=== PATIENT | male | born 1965 | race Caucasian/White ===

== ENCOUNTER 2024-09-20 02:56 | Emergency (ER) | payer BC, SELFPAY ==
[2024-09-20 03:01] VITALS: BP 156/110; PULSE 114; RESP 19; TEMP 36.6; O2SAT 98
--- NOTE | 2024-09-20 03:55 | ED.GENADUL_ITS ---
Discharge Plan Discharge Details Chief Complaint: Fall/Non TraumaCriteria Primary Care Provider: Unknown,Unknown ED Provider: Darlene Marcus Home Meds and New Rx's Prescriptions: No Action No Known Home Meds HPI General Mode of arrival: ambulatory . Date/Time Provider Initiated Documentation: 09/20/24 03:07 . Limitations to Documentation: no limitations . Information obtained by: patient . HPI Narrative: 59yo M with hx TBI, unsteady gait at baseline, presenting after fall. Was drinking with friends this evening, lost balance at top of stairs and fell down ~10-12 stairs. Not sure if he hit his head. Did not lose consciousness. Reports left elbow pain and left lower back pain, otherwise denies pain. No headache, neck pain, nausea, vomiting, numbness, tingling, or weakness. No chest pain or shortness of breath. Was in his usual state of health prior to this event. Related Data Home Medications ?Medication ?Instructions ?Recorded ?Confirmed Unknown [No Known Home Meds] 09/20/24 09/20/24 Allergies Allergy/AdvReac Type Severity Reaction Status Date / Time No Known Allergies Allergy Unverified 09/20/24 03:07 General Stated Complaint: Fall/Non TraumaCriteria PAMELA: 3 Review of Systems Narrative: see HPI Exam Narrative Exam Narrative: GENERAL: Alert, in no acute distress SKIN: Warm and well perfused. HEAD: Atraumatic, normocephalic without edema, discoloration or evidence of trauma. Facial bones without deformities or tenderness. EYES: PERRL. No scleral icterus or conjunctival injection. Extraocular muscles intact without nystagmus or diplopia. No proptosis or enophthalmos. EARS: Normal appearing pinnae. No hemotympanum. NOSE: No discharge, tenderness, laxity. No nasal septal hematoma. MOUTH: No malocclusion or trismus. Moist mucus membranes without blood. NECK: Trachea midline. No discolorations or edema. CV: Regular rate and rhythm, Normal s1 and s2. No murmurs, rubs, or gallops. PV: Radial pulses 2+ bilaterally and symmetric. Dorsalis pedis pulses 2+ bilaterally and symmetric. 2+ capillary refill. No extremity edema. CHEST: No abrasions or ecchymosis. Chest symmetric with respirations. No chest wall tenderness. No crepitus. No step offs. Lungs are clear to auscultation bilaterally. ABDOMEN: No ecchymosis or abrasions. Soft, nondistended, nontender. BACK: No abrasions, skin openings. Spine without bony tenderness, no step offs. Echymosis and swelling to left low lumbar/sacaral region PELVIC: Pelvis stable, nontender to lateral compression MSK: Echymoisis, swelling and tenderness to forearm just distal to elbow. Otherwise no gross deformities or discolorations or lesions. Tolerates full range of motion of extremities without tenderness. No snuffbox tenderness. NEURO: ? GCS 15.? PERRL.? EOMI.? Fluent speech, no dysarthria. Motor- 5/5 strength symmetric bilateral upper and lower extremities including shoulder abductors/adductors, elbow flexors/extensors, wrist flexors/extensors, finger abductors/adductors, hipflexors/extensors, knee flexors/extensors, ankle dorsiflexors and planter flexors. Sensation- ?Intact to light touch and symmetric multiple dermatomes including upper and lower extremities Coordination- No dysmetria on finger to nose Reflexes- 2/4 achilles & patellar, no clonus Gait/station: ?Normal stance.? No truncal ataxia. Slightly unsteady gait CRANIAL NERVES: II: Pupils equal and reactive, III, IV, : EOM intact, no gaze preference or deviation, no nystagmus. V: normal sensation in V1, V2, and V3 segments bilaterally VII: no asymmetry, no nasolabial fold flattening VIII: normal hearing to speech IX, X: normal palatal elevation, no uvular deviation XI: NT XII: midline tongue protrusion Course Vital Signs Vital signs: Vital Signs Temperature 36.6 C 09/20/24 03:01 Pulse 114 H 09/20/24 03:01 Respiratory Rate 19 09/20/24 03:01 Blood Pressure 156/110 H 09/20/24 03:01 Pulse Oximetry 98 09/20/24 03:01 Temperature 36.6 C 09/20/24 03:01 Temperature Source Temporal Artery Scan 09/20/24 03:01 Pulse 114 H 09/20/24 03:01 Respiratory Rate 19 09/20/24 03:01 Blood Pressure 156/110 H 09/20/24 03:01 Blood Pressure Position Sitting 09/20/24 03:01 Pulse Oximetry 98 09/20/24 03:01 Oxygen Delivery Method Room Air 09/20/24 03:01 Oxygen Flow Rate 0 09/20/24 03:01 Pain Level 8 09/20/24 03:04 Medical Decision Making 59yo M with hx TBI, unsteady gait at baseline, presenting after fall; sas drinking with friends this evening, lost balance at top of stairs and fell down ~10-12 stairs. Not sure if he hit his head. Did not lose consciousness. States not on anticoagulation. Slightly tachycardiac on arrival, vital signs otherwise reassuring. Clinically intoxicated. Trauma exam signficant for ehcymosis and swelling to left forearm just distal to elbow (neurovascular intact distally, good strength, pulses, and capillary refill; pt with some diminished sensation to light touch in that arm which he reports is chronic and unchanged) as well as echymoiss and swelling to left low lumbar region. No midline spinal tenderness. Normal neurologic exam. Pt refused c-collar, advised of risks or injury/paralysis/ and verbalized understanding of these risks. No physical findings to suggest cervical spinal injury and would not override pts wishes or sedate him to place collar. Labs reviewed as below, CBC reassuring with no leukocytosis or anemia, CMP with no actionable abnormalities, lipase mildly elevated, coags normal, etoh positive at 392. UA with no hematuria. CT head independently reviewed; no intracranial bleed or mass on my view; radiology read below with no acute findings. CT c-spine independently reviewed; no displaced fracture on my view; radiology read below with no acute findings. CT chest/abd/pelvis independently reviewed; distended bladder and left flank soft tissue inflammation on my view; radiology read below with suggestion of active hemorrhage into left flank hematoma. Plain films L elbow and forearm independently reviewed; no elbow dislocation or displaced fracture on my view; radiology read below with soft tissue swelling. On reassessment patient sleeping. HR 80s. Wakes to touch. Left flank hematoma slightly increased in size from initial eval, remains soft. Will plan to allow time in ED to metabolize substances, serial exams, and reassess when clinically sober. Will be signed out to oncoming physican, plan as above. Imaging Data Radiologic Study: Imaging: X-Ray and CT Scan Radiologist's impression: CT head: IMPRESSION: 1. No intracranial sequelae of trauma appreciated. 2. Additional studies dictated separately CT c-spine: IMPRESSION: 1. No acute cervical spine fracture seen. 2. Additional studies dictated separately CT Chest: IMPRESSION: No acute findings CT Abd/pelvis: IMPRESSION: 1. Left flank hematoma with surrounding inflammatory change. A few hyperdense foci within the collection suggest active hemorrhage into the hematoma. 2. Overdistended bladder which causes bilateral ureterectasis and bilateral ecnn-iw-[id number] hydronephrosis. No evidence for outlet obstructing lesion or mass, although mild prostatomegaly is noted XR elbow: IMPRESSION: 1. Posttraumatic soft tissue swelling of the posterior forearm. 2. Well ossified body at the origin of the common flexor tendon which may chronic injury versus calcific tendinopathy. Correlate clinically. XR forearm: IMPRESSION: 1. No acute osseous abnormality. 2. Posttraumatic swelling seen at the posterior proximal forearm Lab Data Lab results reviewed: Yes I reviewed the patient's lab results. Labs: Laboratory Tests Range/Units 09/20/24 03:45 WBC (4.4-10.8) 10^3/uL 5.44 RBC (4.36-5.78) 10^6/uL 4.66 Hgb (13.5-17.5) g/dL 15.9 Hct (40.0-50.0) % 47.2 MCV (80-95) fL 101 H MCH (27.0-33.0) pg 34.1 H MCHC (32.0-36.0) % 33.7 RDW (11.8-14.1) % 12.5 Plt Count (130-400) 10^3/uL 215 MPV (8.0-11.0) fL 9.2 Immature Gran % % 0.6 Neutrophils % % 61.0 Lymphocytes % % 24.1 Monocytes % % 9.9 Eosinophils % % 3.1 Basophils % % 1.3 Nucleated RBC % (0.0-0.3) % 0.0 Absolute Neutrophils (1.2-6.7) 10^3/uL 3.32 Absolute Lymphocytes (1.2-3.4) 10^3/uL 1.31 Absolute Monocytes (0.1-0.8) 10^3/uL 0.54 Absolute Eosinophils (0.0-0.7) 10^3/uL 0.17 Absolute Basophils (0.0-0.2) 10^3/uL 0.07 PT (9.1-11.1) sec 9.5 INR (0.9-1.1) 0.9 APTT (20.6-30.2) sec 24.6 Sodium (136-145) mmol/L 146 H Potassium (3.5-5.1) mmol/L 3.5 Chloride (98-107) mmol/L 107 Carbon Dioxide (21.0-32.0) mmol/L 30.6 Anion Gap (3-11) mmol/L 8.4 BUN (7-18) mg/dL 11 Creatinine (0.70-1.30) mg/dL 1.0 Est GFR (CKD-EPI 2020) (mL/min/1.73m2) 87.24 Glucose (74-106) mg/dL 101 Calcium (8.5-10.1) mg/dL 9.2 Magnesium (1.8-2.4) mg/dL 2.1 Total Bilirubin (0.2-1.0) mg/dL 0.41 AST (15-37) U/L 40 H ALT (16-63) U/L 33 Alkaline Phosphatase (46-116) U/L 162 H Total Protein (6.4-8.2) g/dL 8.3 H Albumin (3.4-5.0) g/dL 4.2 Lipase (<78) U/L 113 H Ethyl Alcohol (<10) mg/dL 392.5 H ABO/Rh O Positive Antibody Screen NEGATIVE Quality:SDOH Health Related Social Needs: No Data to Display PFSH Social History Smoking/Tobacco Use Status: Never Smoking risk assessment performed?: Yes Alcohol Intake: current Alcohol Intake frequency: holidays/special occasions only Alcohol type: beer and hard liquor Drug use: Never Substance use type: does not use Housing: house Do you feel safe at home: Yes Do you feel safe in your relationship?: Yes PAWSS Have you Been Recently Intoxicated or Drunk Within the Last 30 days?: Yes Have you Ever Experienced Previous Episodes of Alcohol Withdrawal?: No Have you ever Experienced Withdrawal Seizures?: No Have you ever Experienced Delirium Tremens(DT)s?: No Have you ever undergone Alcohol Rehabilitation Treatment (i.e, inpt ot outpatient treatment programs)?: No Have you ever Experienced Blackouts?: No Have you ever Combined Alcohol with other Downers within the last 90 days?: No Have you ever Combined Alcohol with any other Substance of Abuse during the last 90 days?: No Positive Blood Alcohol level on Presentation? [PCS.BAL]: Yes Evidence of Increased Autonomic Activity (i.e. HR>120, tremor, sweating, agitation, nausea)?: Yes Result: 3
[2024-09-20 03:56] LABS: Abs Immature Grans 0.03 10^3/uL (0.0-0.06); Absolute Basophil Count 0.07 10^3/uL (0.0-0.2); Absolute Eosinophil Count 0.17 10^3/uL (0.0-0.7); Absolute Lymphocyte Count 1.31 10^3/uL (1.2-3.4); Absolute Monocyte Count 0.54 10^3/uL (0.1-0.8); Absolute Neutrophil Count 3.32 10^3/uL (1.2-6.7); Basophils % 1.3 %; Eosinophils % 3.1 %; HCT 47.2 % (40.0-50.0); HGB 15.9 g/dL (13.5-17.5); Immature Grans % 0.6 %; Lymphocytes % 24.1 %; MCH 34.1 pg (27.0-33.0); MCHC 33.7 % (32.0-36.0); MCV 101 fL (80-95); MPV 9.2 fL (8.0-11.0); Monocytes % 9.9 %; Platelet Count 215 10^3/uL (130-400); RBC 4.66 10^6/uL (4.36-5.78); RDW 12.5 % (11.8-14.1); RDW-SD 46.9 fL; WBC 5.44 10^3/uL (4.4-10.8)
[2024-09-20 04:11] LABS: ALT 33 U/L (16-63); AST 40 U/L (15-37); Albumin 4.2 g/dL (3.4-5.0); Alkaline Phosphatase 162 U/L (46-116); Anion Gap 8.4 mmol/L (3-11); BUN 11 mg/dL (7-18); Bilirubin, Total 0.41 mg/dL (0.2-1.0); CO2 30.6 mmol/L (21.0-32.0); Calcium 9.2 mg/dL (8.5-10.1); Chloride 107 mmol/L (98-107); Estimated GFR 87.24 (mL/min/1.73m2); Glucose 101 mg/dL (74-106); Magnesium 2.1 mg/dL (1.8-2.4); Potassium 3.5 mmol/L (3.5-5.1); Sodium 146 mmol/L (136-145); Total Protein 8.3 g/dL (6.4-8.2)
[2024-09-20 04:15] LABS: ETHANOL BLOOD 392.5 mg/dL (<10)
--- NOTE | 2024-09-20 04:31 | DI.RAD_ITS ---
Exam(s) XR ELBOW LT COMPLETE EXAM: XR ELBOW LT COMPLETE CLINICAL HISTORY: fall, swelling distal to elbow. TECHNIQUE: 2D digital imaging was performed. COMPARISON: No exams were available for comparison FINDINGS: 3 views There is prominent dorsal soft tissue swelling just distal to the elbow in the proximal forearm. The re is no swelling of the olecranon bursa. No fracture of the elbow evident and no joint effusion evident. Radial head and neck appear unremark able Incidentally noted are findings at the level the medial epicondyle consistent with possible epicondyl itis. IMPRESSION: Prominent dorsal soft tissue swelling-probable hematoma. No elbow fracture nor elbow joint effusion. Findings at the level the medial humeral epicondyle which suggests possibility of medial epicondyliti s. Correlation with any pain over this area recommended. DATA REPOSITORY: RADIATION DOSE DELIVERED:
--- NOTE | 2024-09-20 04:32 | DI.CT_ITS ---
Exam(s) CT CHEST/ABD/PEL W EXAM: CT CHEST/ABD/PEL W CLINICAL HISTORY: fall down stiars, swelling posterior L lumbar. TECHNIQUE: Imaging Protocol: Axial computed tomography images with coronal and sagittal reformatted images were created and reviewed CONTRAST MATERIAL: Intravenous: Omnipaque 350 Contrast volume:100 ml Oral: None COMPARISON: No exams were available for comparison FINDINGS: CHEST: LUNGS: No infiltrates nor pleural effusions. No lung contusion. No pneumothorax. No acute appearin g rib fractures.. MEDIASTINUM: No evidence of sternal fracture or mediastinal hematoma. No hilar nor mediastinal adeno mireya. Thyroid unremarkable. CARDIAC: Heart size is normal. There is no pericardial effusion.Caliber of the thoracic aorta is wit hin normal limits. No dissection. OSSEOUS: No rib nor vertebral fractures.No incidental osseous lesions. . ABDOMEN: There is significant subcutaneous density consistent with hematoma over the posterior aspect of the l eft iliac crest and this contains some hyperdense foci in its superior aspect consistent with active hemorrhage therein. This deep subcutaneous hemorrhage measures approximately 6 by 2 by 3 cm. The castellano bjacent left iliac crest and left transverse processes are not fractured. There is no ascites. No evidence of bowel wall nor mesenteric hematoma. LIVER: No evidence of a hepatic laceration nor Mechelle hepatic fluid . No incidental liver lesions. Mi ld steatosis noted. GALLBLADDER/BILIARY: No obvious gallbladder pathology. CBD is not dilated. PANCREAS: No evidence of pancreatic mass nor dilatation of the pancreatic duct. SPLEEN: Spleen is intact and normal size. No lacerations. Splenic and portal veins are patent. ADRENALS: There are no significant adrenal masses. KIDNEYS: No evidence of renal laceration or subcapsular hematomas. Small benign cyst noted in the po sterior cortex of the right kidney which measures 1 cm and does not require further imaging workup. Another smaller cyst is seen in the superior pole of the opposite-left kidney. There are no solid re nal masses. No calculi. However, there is mild hydroureter. This appears to be related to a grossl y distended urinary bladder. The urinary bladder measures 13 cm AP P by 13 cm wide by 18 cm cranioca udal. There does not appear to be a mass in the urinary bladder. No radiopaque calculi within the b ladder lumen. No obvious abnormal bladder wall thickening ABDOMINAL AORTA: Abdominal aorta is not enlarged. LYMPH NODES: There is no retroperitoneal nor paraaortic adenopathy. ABDOMINAL WALL: No evidence of significant anterior abdominal wall nor inguinal hernia. GI: There is no evidence of bowel obstruction.No free air. No abscess. PELVIS: LYMPH NODES: There is no intrapelvic nor inguinal adenopathy. GI: No evidence of appendicitis.No evidence of sigmoid diverticulitis. URINARY BLADDER: As above. Grossly distended. No clots within the bladder lumen. No masses evident . REPRODUCTIVE: Prostate gland size is upper normal. Seminal vesicles appear unremarkable. OSSEOUS: No evidence of hip nor pelvic fractures. Sacroiliac joints appear unremarkable. Transverse process is of the lumbar vertebrae are intact. IMPRESSION: 1. The main acute finding is a left lower flank hematoma measuring approximately 6 x 3 x 2 cm and con taining a few hyperdense foci indicating active hemorrhage into the hematoma at the time of image acq uisition. There is no fracture of the subjacent left hemipelvis and hip. 2. There is gross distention of the urinary bladder measuring up to 18 cm. Prostate gland is not enl arged. There is no obvious mass nor radiopaque calculi in the bladder. 3. No significant acute intrathoracic findings. 4. RADIATION DOSE DELIVERED: 856.29mGy.cm Total DLP DATA REPOSITORY: All CT scans at this facility are submitted to the National Radiology Data Registry (NRDR) Dose Index Registry (DIR) with the [employer] ([employer]). RADIATION OPTIMIZATION: All CT scans at this facility use at least one of these dose optimization te chniques: automated exposure control; mA and/or kV adjustment per patient size (includes targeted exa ms where dose is matched to clinical indication); or iterative reconstruction.
--- NOTE | 2024-09-20 04:32 | DI.CT_ITS ---
Exam(s) CT HEAD CERVICAL SPINE WO EXAM: CT HEAD CERVICAL SPINE WO CLINICAL HISTORY: fall down 12 stairs, intoxicated. TECHNIQUE: Imaging Protocol: Axial computed tomography images with coronal and sagittal reformatted images were created and reviewed COMPARISON: No exams were available for comparison FINDINGS: BRAIN: There are no skull fractures nor fluid in the visualized paranasal sinuses. There is a post inflamma tory retention cyst in left maxillary sinus floor but no associated fluid level. Visualized right ma xillary sinus is clear as are the other paranasal sinuses and mastoid air cells. There is no evidence of intracranial hemorrhage, mass effect, or shift of midline structures. There are no extra-axial fluid collections. The ventricles are not enlarged or shifted and there is no blo od within the ventricular system nor within the basal cisterns. CERVICAL SPINE: There is no evidence of fracture nor listhesis. No significant prevertebral soft tissue swelling. There is no significant facet joint malalignment. No significant osseous lesions evident. IMPRESSION: No acute intracranial findings on this noninfused CT scan of the brain.Paranasal sinuses findings as above. No evidence of cervical spine fracture, malalignment, nor acute compromise of the cervical spinal can al. RADIATION DOSE DELIVERED: 1,618.62mGy.cm Total DLP DATA REPOSITORY: All CT scans at this facility are submitted to the National Radiology Data Registry (NRDR) Dose Index Registry (DIR) with the [employer] ([employer]). RADIATION OPTIMIZATION: All CT scans at this facility use at least one of these dose optimization te chniques: automated exposure control; mA and/or kV adjustment per patient size (includes targeted exa ms where dose is matched to clinical indication); or iterative reconstruction.
[2024-09-20] MEDS: Omnipaque 350 MG/ML 100 ML BTL IJ (04:33)
--- NOTE | 2024-09-20 04:33 | DI.RAD_ITS ---
Exam(s) XR FOREARM LT EXAM: XR FOREARM LT CLINICAL HISTORY: fall, swelling distal to elbow. TECHNIQUE: 2D digital imaging was performed. COMPARISON: No exams were available for comparison FINDINGS: Two views-AP and lateral. There is posterior proximal forearm soft tissue swelling, probable hematoma given the acute trauma hi story here. There does not appear to be swelling of the exact area of the actual olecranon bursa. T here are no fractures evident in the forearm bones. No elbow joint effusion. IMPRESSION: Dorsal soft tissue swelling-probable hematoma in the proximal forearm, dorsally. No acute osseous fi ndings. DATA REPOSITORY: RADIATION DOSE DELIVERED:
[2024-09-20] MEDS: Normal Saline - Diluent 50 ML VIAL IJ (04:34)
[2024-09-20 04:37] LABS: Lipase 113 U/L (<78)
[2024-09-20 04:42] LABS: INR 0.9 (0.9-1.1); PTT Activated 24.6 sec (20.6-30.2); Prothrombin Time 9.5 sec (9.1-11.1)
[2024-09-20 04:56] LABS: Bilirubin Negative (Negative); Blood Negative (Negative); Clarity Clear (Clear); Glucose Negative (Negative); Ketones Negative (Negative); Leukocyte Esterase Negative (Negative); Nitrite Negative (Negative); Urobilinogen 0.2 mg/dL (Up to 0.2)
--- NOTE | 2024-09-20 05:21 | DI.VRAD_ITS ---
PROCEDURE INFORMATION: Exam: CT Chest With Contrast; Diagnostic Exam date and time: 09/20/2024 4:00 AM Age: 59 years old Clinical indication: Injury or trauma; Fall; Generalized; Blunt trauma (contusions or hematomas); Injury date: 09/20/24; Patient HX: Fell down 12 stairs, swelling posterior L lumbar, intoxicated TECHNIQUE: Imaging protocol: Diagnostic computed tomography of the chest with contrast. Radiation optimization: All CT scans at this facility use at least one of these dose optimization techniques: automated exposure control; mA and/or kV adjustment per patient size (includes targeted exams where dose is matched to clinical indication); or iterative reconstruction. Contrast material: [id number]; Contrast volume: 100 ml; Contrast route: INTRAVENOUS (IV); COMPARISON: CT HEAD CERVICAL SPINE WO 09/20/2024 3:47 AM FINDINGS: Lungs: Basilar scarring/atelectasis. Pleural spaces: Unremarkable. No pneumothorax. No pleural effusion. Heart: Unremarkable. No cardiomegaly. No pericardial effusion. Lymph nodes: Unremarkable. No enlarged lymph nodes. Vasculature: Unremarkable. No aortic aneurysm. Bones/joints: Unremarkable. No acute fracture. Soft tissues: Unremarkable. IMPRESSION: No acute findings. PROCEDURE INFORMATION: Exam: CT Abdomen And Pelvis With Contrast Exam date and time: 09/20/2024 4:00 AM Age: 59 years old Clinical indication: Injury or trauma; Fall; Generalized; Blunt trauma (contusions or hematomas); Injury date: 09/20/24; Patient HX: Fell down 12 stairs, swelling posterior L lumbar, intoxicated TECHNIQUE: Imaging protocol: Computed tomography of the abdomen and pelvis with contrast. Radiation optimization: All CT scans at this facility use at least one of these dose optimization techniques: automated exposure control; mA and/or kV adjustment per patient size (includes targeted exams where dose is matched to clinical indication); or iterative reconstruction. Contrast material: [id number]; Contrast volume: 100 ml; Contrast route: INTRAVENOUS (IV); COMPARISON: No relevant prior studies available. FINDINGS: Lungs: Lung bases are clear as visualized. Heart: Base of heart is unremarkable as visualized. Liver: Right superior hepatic lobe hypoattenuation, too small to characterize by modality, statistically likely to represent benign findings. Gallbladder and biliary ducts: Normal. No calcified stones. No ductal dilation. Pancreas: Normal. No ductal dilation. Spleen: Small splenule is incidentally noted. Adrenal glands: Normal. No mass. Kidneys and ureters: Bilateral benign partially exophytic renal cysts. Bilateral mild ureterectasis and mild hydronephrosis is seen. Stomach and bowel: A few bilateral hypodensities within the renal parenchyma are seen enteric to small to characterize by modality, statistically likely to represent benign findings. Kjlt-om-jknhzfyk colonic stool burden. Appendix: No evidence of appendicitis. Intraperitoneal space: Unremarkable. No free air. No significant fluid collection. Vasculature: Unremarkable. No abdominal aortic aneurysm. Lymph nodes: Unremarkable. No enlarged lymph nodes. Urinary bladder: Urinary bladder is significantly distended by urine without focal wall abnormality. Reproductive: Mild prostatomegaly. Bones/joints: Unremarkable. No acute fracture. Soft tissues: Fat stranding is seen within the left lower flank. Complex fluid collection is seen just posterior to the superior left iliac bone in the left flank fat which measures maximal dimensions of 1.9 x 5.9 x 3.1 cm (series 4, image 150; series 7, image 40). A few hyperattenuating punctate foci within the collection is seen. IMPRESSION: 1. Left flank hematoma with surrounding inflammatory change. A few hyperdense foci within the collection suggest active hemorrhage into the hematoma. 2. Overdistended bladder which causes bilateral ureterectasis and bilateral [id number]-[id number] hydronephrosis. No evidence for outlet obstructing lesion or mass, although mild prostatomegaly is noted. Dictated and Authenticated by: Ambrose Rosen MD. Ordering:JOSE Colon MD
--- NOTE | 2024-09-20 05:23 | DI.VRAD_ITS ---
PROCEDURE INFORMATION: Exam: CT Head Without Contrast Exam date and time: 09/20/2024 3:47 AM Age: 59 years old Clinical indication: Injury or trauma; Fall; Blunt trauma (contusions or hematomas); Injury date: 09/20/24; Patient HX: Fell down 12 stairs, intoxicated TECHNIQUE: Imaging protocol: Computed tomography of the head without contrast. Radiation optimization: All CT scans at this facility use at least one of these dose optimization techniques: automated exposure control; mA and/or kV adjustment per patient size (includes targeted exams where dose is matched to clinical indication); or iterative reconstruction. COMPARISON: No relevant prior studies available. FINDINGS: Limitations: Mild motion artifact. Brain: No intracranial hemorrhage appreciated. No significant focal mass effect or significant midline shift. Cerebral ventricles: No disproportionate ventriculomegaly. Paranasal sinuses: Mucosal retention cyst versus polyp in the left maxillary sinus. Mastoid air cells: No mastoid effusion. Bones: No acute cranial vault fracture seen. Soft tissues: No acute findings. IMPRESSION: 1. No intracranial sequelae of trauma appreciated. 2. Additional studies dictated separately. PROCEDURE INFORMATION: Exam: CT Cervical Spine Without Contrast Exam date and time: 09/20/2024 3:47 AM Age: 59 years old Clinical indication: Injury or trauma; Fall; Blunt trauma (contusions or hematomas); Injury date: 09/20/24; Patient HX: Fell down 12 stairs, intoxicated TECHNIQUE: Imaging protocol: Computed tomography of the cervical spine without contrast. Radiation optimization: All CT scans at this facility use at least one of these dose optimization techniques: automated exposure control; mA and/or kV adjustment per patient size (includes targeted exams where dose is matched to clinical indication); or iterative reconstruction. COMPARISON: No relevant prior studies available. FINDINGS: Limitations: Mild motion artifact. Artifact from metallic dental hardware obscures surrounding tissues. Bones: No cervical spine fracture identified. Multilevel degenerative changes. Pharynx: Tonsillar calcifications. Lungs: No acute findings. Lymph nodes: Multiple cervical lymph nodes. Soft tissues: No acute findings. IMPRESSION: 1. No acute cervical spine fracture seen. 2. Additional studies dictated separately. Dictated and Authenticated by: Ene Yates MD. Ordering:JOSE Colon MD
--- NOTE | 2024-09-20 05:26 | DI.VRAD_ITS ---
PROCEDURE INFORMATION: Exam: XR Left Elbow Exam date and time: 09/20/2024 4:18 AM Age: 59 years old Clinical indication: Injury or trauma; Fall; Blunt trauma (contusions or hematomas); Elbow and arm, lower; Left; Injury date: 09/20/24; Patient HX: Fell down 12 stairs, swelling distal to elbow TECHNIQUE: Imaging protocol: Radiologic exam of the left elbow. Views: 3 or more views. COMPARISON: CR XR FOREARM LT 09/20/2024 4:17 AM FINDINGS: Bones/joints: Well ossified body is appreciated at the origin of the common flexor tendon. Small triceps enthesophyte. Soft tissues: Thickening of the posterior forearm soft tissues indicative of hematoma given the clinical setting. IMPRESSION: 1. Posttraumatic soft tissue swelling of the posterior forearm. 2. Well ossified body at the origin of the common flexor tendon which may chronic injury versus calcific tendinopathy. Correlate clinically. Dictated and Authenticated by: Ambrose Rosen MD. Ordering:JOSE Colon MD
--- NOTE | 2024-09-20 05:27 | DI.VRAD_ITS ---
PROCEDURE INFORMATION: Exam: XR Left Forearm Exam date and time: 09/20/2024 4:17 AM Age: 59 years old Clinical indication: Injury or trauma; Fall; Blunt trauma (contusions or hematomas); Elbow and arm, lower; Left; Injury date: 09/20/24; Patient HX: Fell down 12 stairs, swelling distal to elbow TECHNIQUE: Imaging protocol: Radiologic exam of the left forearm. Views: 2 views. COMPARISON: No relevant prior studies available. FINDINGS: Bones/joints: Normal. Soft tissues: Posterior forearm swelling is seen proximally. IMPRESSION: 1. No acute osseous abnormality. 2. Posttraumatic swelling seen at the posterior proximal forearm. Dictated and Authenticated by: Ambrose Rosen MD. Ordering:JOSE Colon MD
--- NOTE | 2024-09-20 07:41 | W.EDPROG ---
Date of service: 10/01/24 Time of Service: 07:41 Medical Decision Making Patient is ambulating, has no slurred speech and is clinically sober. He is requesting discharge. He only has mild discomfort in the left flank area and I advised that he has a hematoma in this area. He does not want to stay for any further observation and has decision-making capacity. Given he only has mild pain and is walking without any issues and clinically sober with no new pain I feel he is stable for discharge to follow-up with his PCP if not improving and return precautions given Quality:SDOH Health Related Social Needs: No Data to Display Discharge Plan Disposition Patient Disposition: Home Condition: Stable Discharge Details Chief Complaint: Fall/Non TraumaCriteria Clinical Impression: Fall Primary Care Provider: Unknown,Unknown ED Provider: Karl Rubi Home Meds and New Rx's Prescriptions: No Action No Known Home Meds Discharge Instructions Additional Instructions: He is to continue to have pain is improving this week follow-up with your primary care provider If you feel more ill or have severe worsening pain return to the emergency department for reevaluation. You can take 1000 mg of acetaminophen and 600 mg of ibuprofen every 6 hours as needed
[2024-09-20 07:42] VITALS: PULSE 98; RESP 16; O2SAT 98
--- NOTE | 2024-09-22 15:24 | NUR.NOTE ---
[facility] ([facility] ([place]) called asking for the patients visit note and imaging reports. I faxed these. . . Nursing Note:
== END 2024-09-20 07:45 | disposition home or self-care (01) ==
PROVIDERS: Student in an Organized Health Care Education/Training Program; Emergency Provider Emergency Medicine
DX: M25.522 Pain in left elbow (principal); M54.50 Low back pain, unspecified; F10.120 Alcohol abuse with intoxication, uncomplicated; Y90.8 Blood alcohol level of 240 mg/100 ml or more; Z87.820 Personal history of traumatic brain injury; W10.8XXA Fall (on) (from) other stairs and steps, initial encounter; Y93.01 Activity, walking, marching and hiking
CPT/HCPCS: 00123; 36415; 74177; 80053; 83690; 86850; 86900; 86901; 99285; 70450; 71260; 72125; 73080; 73090; 80320; 81003; 83735; 85025; 85610; 85730; 99284; J3490